=== PATIENT | female | born 1940 | race Caucasian/White ===

== ENCOUNTER 2019-07-15 08:36 | Day surgery (SDC) | payer MEDICARE, BC ==
[2019-07-15] MEDS ORDERED: fentaNYL 100 MCG/2 ML SDV ONE (08:59)
[2019-07-15] MEDS ORDERED: Midazolam 1 MG/ML 2 ML SDV ONE (09:00)
[2019-07-15] MEDS ORDERED: Propofol 200 MG/20 ML SDV ONE (09:00)
[2019-07-15] MEDS ORDERED: Lactated Ringers 1,000 ML IV SCH (09:30)
[2019-07-15 11:48] VITALS: BP 136/82; PULSE 60
--- NOTE | 2019-07-15 15:24 | OR ---
DATE OF PROCEDURE: 07/15/2019 SURGEON: Sulaiman Frank MD PREOPERATIVE DIAGNOSIS: Colon cancer screening. POSTOPERATIVE DIAGNOSIS: Unremarkable colonoscopy. PROCEDURE: Colonoscopy to the cecum. ANESTHESIA: IV anesthesia with monitored anesthesia care. INDICATION: This 79-year-old white female is referred for a colonoscopy for colon cancer screening. She says her last colonoscopic exam was done 10 years ago. I counseled her for the procedure, including risks and alternatives, and she gave her informed consent to proceed. DESCRIPTION OF PROCEDURE: The patient was placed in the left lateral decubitus position. IV anesthesia was administered by the Anesthesia Service. Time-out was held. A rectal exam was performed, which was unremarkable. The flexible video Olympus colonoscope was introduced through her anus, up her rectum, and out her colon all the way to the cecum. Once the cecum was reached, the scope was slowly withdrawn, examining the mucosa throughout. No mucosal abnormalities were noted. The scope was retroflexed in the rectum with the distal rectum appearing unremarkable. The scope was straightened and removed. She tolerated the procedure well. Sulaiman Frank MD /[id number] MTDD
== END 2019-07-15 11:40 | disposition home or self-care (01) ==
LOC: JP.SDS 08:36
PROVIDERS: ATTEND Surgery
DX: Z12.11 Encounter for screening for malignant neoplasm of colon (principal); I10 Essential (primary) hypertension; E78.5 Hyperlipidemia, unspecified
CPT/HCPCS: J2250; J2704; J3010; J7120

== ENCOUNTER 2019-12-29 06:33 | Emergency (ER) | payer MEDICARE, BC ==
[2019-12-29 07:07] VITALS: BP 157/82; PULSE 72
--- NOTE | 2019-12-29 07:20 | EDM.PDOC ---
ED HPI GENERAL MEDICAL PROBLEM - General Chief Complaint: Skin Complaint Stated Complaint: POISON EZEKIEL ON LEGS Time Seen by Provider: 12/29/19 07:00 Source of Information: Reports: Patient History Limitations: Reports: No Limitations - History of Present Illness INITIAL COMMENTS - FREE TEXT/NARRATIVE: 79-year-old female with a widespread papular very itchy rash on her lower extremities after working in her yard 2 days ago. She does not believe she was bitten by anything, she has no fever chills or other systemic symptoms. She has not had past reactions to poison ezekiel or other plants. Duration: Day(s): (2 days) Location: Reports: Lower Extremity, Left, Lower Extremity, Right Improves with: Reports: None Worsens with: Reports: None Associated Symptoms: Reports: No Other Symptoms Bilateral Leg Pain Score (Numeric/FACES): 3 - Related Data Allergies Allergy/AdvReac Type Severity Reaction Status Date / Time No Known Allergies Allergy Verified 12/29/19 07:01 Home Meds: Home Meds Hydrochlorothiazide 12.5 mg PO DAILY 08/07/16 [History] Simvastatin 20 mg PO BEDTIME 08/07/16 [History] Aspirin/Calcium Carbonate [Flor Women's Aspirin Tablet] 1 tab PO DAILY [History] Calcium Carbonate/Vitamin D3 [Calcium Carb 500 MG] 1 tab PO DAILY 07/11/19 [ History] Cholecalciferol (Vitamin D3) [Vitamin D3] 1,000 unit PO DAILY 07/11/19 [History] Past Medical History HEENT History: Reports: Impaired Vision Cardiovascular History: Reports: High Cholesterol [employer]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: Musculoskeletal History: Reports: Arthritis, Fracture, Other (See Below) Other Musculoskeletal History: fractured arm as child Oncologic (Cancer) History: Reports: Breast - Infectious Disease History Infectious Disease History: Reports: Chicken Pox - Past Surgical History HEENT Surgical History: Reports: Cataract Surgery GI Surgical History: Reports: Colonoscopy Female Surgical History: Reports: Breast Biopsy Oncologic Surgical History: Reports: Lumpectomy Social & Family History - Tobacco Use Smoking Status *Q: Never Smoker Second Hand Smoke Exposure: No - Caffeine Use Caffeine Use: Reports: Soda - Alcohol Use Days Per Week of Alcohol Use: 0 - Recreational Drug Use Recreational Drug Use: No ED ROS GENERAL - Review of Systems Review Of Systems: See Below Constitutional: Denies: Fever, Chills HEENT: Reports: No Symptoms Respiratory: Denies: Shortness of Breath Cardiovascular: Denies: Chest Pain GI/Abdominal: Denies: Nausea, Vomiting Neurological: Denies: Paresthesia Psychiatric: Reports: No Symptoms ED EXAM, SKIN/RASH Exam: See Below Exam Limited By: No Limitations General Appearance: Alert, No Apparent Distress, Other (Patient is uncomfortable but not distressed) Head: Atraumatic, Other (No sign of rash or reaction of the face or neck) Respiratory/Chest: No Respiratory Distress Extremities: Other (Both lower extremities have diffuse red papular lesions that are not inflamed or vesicular) Neurological: Alert, Oriented Psychiatric: Normal Affect, Normal Mood Skin: Rash (Explained above) Course - Vital Signs Last Recorded V/S: Last Vital Signs Temp 96.7 F L 12/29/19 07:06 Pulse 72 12/29/19 07:06 Resp 16 12/29/19 07:06 BP 157/82 H 12/29/19 07:06 Pulse Ox 96 12/29/19 07:06 - Re-Assessments/Exams Free Text/Narrative Re-Assessment/Exam: 12/29/19 07:18 These are too numerous I think for bites and they are likely some type of contact dermatitis. She was given triamcinolone cream to apply twice daily, along with 50 mg of prednisone daily for the next 2 to 6 days. Recheck in 2 to 3 days if not improving satisfactorily. Departure - Departure Time of Disposition: 07:29 Disposition: Home, Self-Care 01 Clinical Impression: Contact dermatitis Qualifiers: Contact dermatitis type: unspecified Contact dermatitis trigger: non-food plants Qualified Code(s): L25.5 - Unspecified contact dermatitis due to plants, except food - Discharge Information Instructions: Contact Dermatitis, [id number] Referrals: PCP,None [Primary Care Provider] - Forms: ED Department Discharge Care Plan Goals: Apply cream to rash areas twice daily, and take 5 pills of prednisone with your first meal for at least 2 to 3 days and up to 6 days if needed. Consider rechecking in 3 to 4 days if not improving satisfactorily. Sepsis Event Note - Evaluation Sepsis Screening Result: No Definite Risk - Focused Exam Vital Signs: Vital Signs Temp Pulse Resp BP Pulse Ox 12/29/19 07:06 96.7 F L 72 16 157/82 H 96 Date Exam was Performed: 12/29/19 Time Exam was Performed: 07:35
== END 2019-12-29 07:29 | disposition home or self-care (01) ==
LOC: JP.ED 06:33
DX: L25.5 Unspecified contact dermatitis due to plants, except food (principal); E78.00 Pure hypercholesterolemia, unspecified; Z79.899 Other long term (current) drug therapy; Z79.82 Long term (current) use of aspirin
CPT/HCPCS: 99282

== ENCOUNTER 2023-04-12 03:13 | Emergency (ER) | payer MEDICARE, BC ==
[2023-04-12 04:34] LABS: APPEARANCE,URINE CLOUDY (CLEAR); BILIRUBIN,URINE NEGATIVE (NEGATIVE); COLOR,URINE YELLOW (YELLOW); GLUCOSE,URINE NEGATIVE (NEGATIVE); KETONES,URINE NEGATIVE (NEGATIVE); LEUKOCYTE ESTERASE,URINE MODERATE (NEGATIVE); NITRITE,URINE NEGATIVE (NEGATIVE); OCCULT BLOOD,URINE LARGE (NEGATIVE); PH,URINE 7.5 (5.0-8.0); PROTEIN,URINE 100 mg/dL (NEGATIVE); UROBILINOGEN,URINE 0.2 EU/dL (0.2-1.0)
[2023-04-12 04:36] LABS: AMORPHOUS SEDIMENT,URINE MODERATE; BACTERIA,URINE MANY; EPITHELIAL CELLS,URINE MANY; MUCUS,URINE NOT SEEN; RBC,URINE PACKED (0-5); WBC,URINE PACKED (0-5)
[2023-04-12 04:48] LABS: BASOPHILS ABSOLUTE AUTO 0.06 K/uL (0.00-0.10); BASOPHILS PERCENT AUTO 0.3 % (0.1-1.3); EOSINOPHILS ABSOLUTE AUTO 0.05 K/uL (0.00-0.40); EOSINOPHILS PERCENT AUTO 0.2 % (0.0-5.4); HEMATOCRIT 44.4 % (34.3-46.0); IMMATURE GRAN ABSOLUTE AUTO 0.13 K/uL (0.00-0.23); IMMATURE GRAN PERCENT AUTO 0.6 % (0.0-0.7); LYMPHOCYTES ABSOLUTE AUTO 1.52 K/uL (0.8-3.3); LYMPHOCYTES PERCENT AUTO 6.7 % (11.4-47.7); MEAN CORPUSCULAR HEMOGLOBIN 30.7 pg (31.6-35.5); MEAN CORPUSCULAR HGB CONC 33.8 g/dL (31.6-35.5); MONOCYTES ABSOLUTE AUTO 0.67 K/uL (0.20-0.90); NEUTROPHILS PERCENT AUTO 89.2 % (40.0-78.1); PLATELET COUNT,PLT 411 K/uL (130-375); RED BLOOD CELL COUNT 4.88 M/uL (3.77-5.24); WHITE BLOOD CELL COUNT,WBC 22.6 K/uL (3.2-11.0)
[2023-04-12 05:02] LABS: CALCIUM 9.3 mg/dL (8.5-10.1); CREATININE 0.8 mg/dL (0.6-1.0); EST CRCL DRUG DOSING (CG) 45.62 mL/min; POTASSIUM,K 3.1 mmol/L (3.6-5.2)
[2023-04-12 05:04] LABS: ANION GAP 14.1 mmol/L (5.0-14.0)
[2023-04-12] MEDS ORDERED: cefTRIAXone 1 GM Vial IM ONE (05:12)
[2023-04-12] MEDS ORDERED: Lidocaine 1% PF 2 ML SDV INJECT ONE (05:16)
[2023-04-12] MEDS ORDERED: Polyethylene Glycol 3350 Powder 17 GM Packet PO ONE (05:19)
[2023-04-12 05:37] VITALS: BP 185/94; PULSE 78
== END 2023-04-12 05:55 | disposition home or self-care (01) ==
LOC: JP.ED 03:13
DX: N12 Tubulo-interstitial nephritis, not specified as acute or chronic (principal); N39.0 Urinary tract infection, site not specified; E11.9 Type 2 diabetes mellitus without complications; E78.00 Pure hypercholesterolemia, unspecified; Z79.82 Long term (current) use of aspirin
CPT/HCPCS: 36415; 80048; 81001; 85025; 96372; 99283; A9270; J0696